=== PATIENT | male | born 1955 | race Caucasian/White ===

== ENCOUNTER → 2020-08-30 | Outpatient (CLI) | payer BC ==
[~2020-08-30] MED LIST: BELSOMRA10 MG PO; CALCIUM 600 +1 EAC7 PO; FLOMAX 0.4 MG0.4 MG PO; VITAMIN D350 MC3 PO; XYZAL5 MG PO
[2020-08-30 07:58] LABS: HEMOGLOBIN 16.1 gm/dl (14.0-17.5); RED BLOOD COUNT 5.56 M/UL (4.20-5.50); WHITE BLOOD COUNT 6.5 K/UL (4.5-11.0)
[2020-08-30 08:11] LABS: BUN/CREATININE RATIO 23 (0-10)
== END ==
LOC: LAB 07:12
PROVIDERS: Internal Medicine
DX: R00.2 Palpitations (principal)
CPT/HCPCS: 36415; 80048; 80061; 80076; 84443; 85025

== ENCOUNTER → 2020-10-17 | Day surgery (SDC) | payer BC | END | disposition home or self-care (01) | LOC: OR 10:44 | PROVIDERS: Urology | PROC: 0TJB8ZZ Inspection of Bladder, Via Natural or Artificial Opening Endoscopic (ICD-10-PCS; principal; 2020-10-17 13:15) | DX: N40.1 Benign prostatic hyperplasia with lower urinary tract symptoms (principal); R39.14 Feeling of incomplete bladder emptying; R35.0 Frequency of micturition; R35.1 Nocturia; R39.15 Urgency of urination; N32.89 Other specified disorders of bladder; F41.9 Anxiety disorder, unspecified; F32.9 Major depressive disorder, single episode, unspecified; Z79.899 Other long term (current) drug therapy; Z20.822 Contact with and (suspected) exposure to COVID-19 | CPT/HCPCS: 81001; 87635; J7040; J7120 ==

== ENCOUNTER → 2021-03-03 | Outpatient (CLI) | payer BC ==
[2021-03-03 13:24] LABS: HEMOGLOBIN 16.1 gm/dl (14.0-17.5); RED BLOOD COUNT 5.48 M/UL (4.20-5.50); WHITE BLOOD COUNT 6.9 K/UL (4.5-11.0)
[2021-03-03 13:40] LABS: BUN/CREATININE RATIO 18 (0-10)
== END ==
LOC: LAB 11:27
PROVIDERS: Internal Medicine
DX: N40.1 Benign prostatic hyperplasia with lower urinary tract symptoms (principal); R00.2 Palpitations; E55.9 Vitamin D deficiency, unspecified; E53.8 Deficiency of other specified B group vitamins
CPT/HCPCS: 36415; 80048; 80061; 80076; 82607; 84153; 84443; 85025

== ENCOUNTER → 2021-03-06 | Day surgery (SDC) | payer BC | END | disposition home or self-care (01) | LOC: OR 07:11 | DX: N40.1 Benign prostatic hyperplasia with lower urinary tract symptoms (principal); R39.14 Feeling of incomplete bladder emptying; R35.0 Frequency of micturition; R35.1 Nocturia; R39.16 Straining to void; R39.15 Urgency of urination; R39.12 Poor urinary stream; N32.89 Other specified disorders of bladder; F41.9 Anxiety disorder, unspecified; F32.9 Major depressive disorder, single episode, unspecified; Z79.899 Other long term (current) drug therapy | CPT/HCPCS: J1100; J1956; J2001; J2250; J2405; J2704; J3010; J7030; J7120; L8699 ==

== ENCOUNTER → 2021-09-04 | Outpatient (CLI) | payer BC ==
[2021-09-04 11:08] LABS: HEMOGLOBIN 16.4 gm/dl (14.0-17.5); RED BLOOD COUNT 5.56 M/UL (4.20-5.50); WHITE BLOOD COUNT 6.7 K/UL (4.5-11.0)
[2021-09-04 11:37] LABS: BUN/CREATININE RATIO 16 (0-10)
== END ==
LOC: LAB 10:35
PROVIDERS: Internal Medicine
DX: E53.8 Deficiency of other specified B group vitamins (principal); E55.9 Vitamin D deficiency, unspecified; N40.1 Benign prostatic hyperplasia with lower urinary tract symptoms; R00.2 Palpitations
CPT/HCPCS: 80048; 80061; 80076; 82607; 84153; 84443; 85025

== ENCOUNTER → 2022-03-17 | Outpatient (CLI) | payer BC ==
[2022-03-17 07:02] LABS: HEMOGLOBIN 16.3 gm/dl (14.0-17.5); RED BLOOD COUNT 5.56 M/UL (4.20-5.50); WHITE BLOOD COUNT 6.1 K/UL (4.5-11.0)
[2022-03-17 07:37] LABS: BUN/CREATININE RATIO 20 (0-10)
== END ==
LOC: LAB 06:32
PROVIDERS: Internal Medicine
DX: R00.2 Palpitations (principal)
CPT/HCPCS: 36415; 80048; 80061; 80076; 84443; 85025